=== PATIENT | female | born 1960 | race Caucasian/White ===

== ENCOUNTER 2021-12-26 22:21 | Emergency (ER) | payer OTHER ==
[~2021-12-26 22:21] MED LIST: KEFLEX500 MG PO; LOPRESSOR 50 MG50 MG GT
[2021-12-26 23:53] LABS: HEMOGLOBIN 16.8 gm/dl (12.3-15.3); RED BLOOD COUNT 5.51 M/UL (4.00-5.10); WHITE BLOOD COUNT 16.3 K/UL (4.5-11.0)
[2021-12-27 00:14] LABS: BUN/CREATININE RATIO 9 (0-10)
== END 2021-12-27 01:22 | disposition home or self-care (01) ==
LOC: ER1 22:21
PROVIDERS: Physician Assistant
DX: N93.9 Abnormal uterine and vaginal bleeding, unspecified (principal); F17.200 Nicotine dependence, unspecified, uncomplicated; I10 Essential (primary) hypertension
CPT/HCPCS: 80053; 81001; 84702; 84703; 85025; 99284; Q9967